=== PATIENT | female | born 1985 | race American Indian/Alaskan Native ===

== ENCOUNTER 2017-12-12 21:11 | Inpatient (IN) | payer OTHER ==
[2017-12-12 21:11] VITALS: BMI 32.5
[2017-12-12 21:16] VITALS: O2SAT 96
--- NOTE | 2017-12-12 21:17 | ED PDOC ---
Psych Transfer Clearance - Clearance Statement Clearance Statement: Dr. Artis alvarezwed vital signs, lab results and transfer papers. Patient clinically stable for psychiatric admission.
[2017-12-12] MEDS ORDERED: DiphenhydrAMINE 50 mg/ml Inj IM PRN (21:52)
[2017-12-12] MEDS ORDERED: Alum-Mag Hydrox-Simethicone Susp (30 mL) PO PRN (21:52)
[2017-12-12] MEDS ORDERED: Magnesium Hydroxide Susp 30 ml UD PO PRN (21:52)
--- NOTE | 2017-12-12 22:09 | PCM.BM ---
Treatment Plan Problems - Problems identified on initial assessmt Self Harm Date Initiated: 12/12/17 Time Initiated: 22:07 Assessment reference: NA Status: Active Suicidal Ideation Date Initiated: 12/12/17 Time Initiated: 22:07 Assessment reference: NA Status: Active Hopelessness/Helplessness Date Initiated: 12/12/17 Time Initiated: 22:08 Assessment reference: NA Status: Active Treatment assets and liabiliti Patient Assests: cooperative, self-reliant, ADL independent, negotiates basic needs Patient Liabilities: substance abuse - Milieu Protocol Maintain good personal hygiene: daily Encourage regular showers, every shift Remind patient to perform daily oral care Conduct patient checks and document Observation sheet: Q15 minutes Maintain personal safety: every shift Educate patient to report safety concerns to staff, every shift Monitor environment for contraband/sharps Medication safety: Monitor for expected outcome, potential side effects: every shift, Assess barriers to learning: every shift, Assess readiness for medication education: every shift
[2017-12-13 09:06] LABS: T4 7.78 ug/dl (5.5-11.0)
[2017-12-13 09:40] VITALS: RESP 20
[2017-12-13] MEDS ORDERED: Risperidone M TAB 2 MG PO STA (14:01)
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
[2017-12-13] MEDS: Risperidone M TAB 2 MG PO SCH (17:59)
--- NOTE | 2017-12-14 05:36 | CON ---
DATE: 12/13/2017 HISTORY OF PRESENT ILLNESS: This is a 32-year-old female who is a smoker with history of gastroesophageal reflux disease, on pantoprazole. The patient was admitted to psychiatry floor, and medical consultation was called for medical followup. The patient denied to have any symptoms of heartburn or shortness of breath. Other review of systems is negative. ALLERGY: NO KNOWN ALLERGY. MEDICATIONS: As per MAR. SOCIAL HISTORY: Positive for smoking. Denies EtOH or substance abuse. FAMILY HISTORY: Not contributory. PHYSICAL EXAMINATION: GENERAL: The patient is in bed comfortable, not in any cardiopulmonary distress. VITAL SIGNS: Blood pressure 142/92, temperature 97.1, respiratory rate 20, and pulse 107. HEENT: Pupils equal and reactive to light. Normal-appearing mucosa of the conjunctivae, oropharynx, and nasal membrane mucosa. NECK: Supple. No JVD. No carotid bruit. No lymph node. No thyromegaly. CHEST AND LUNGS: Bilateral symmetrical expansion. Good air exchange. No rales. No rhonchi. CARDIOVASCULAR SYSTEM: PMI not localized. S1 and S2. No additional sounds. ABDOMEN: Normoactive bowel sounds. No tenderness. No organomegaly. No masses. EXTREMITIES: No cyanosis. No clubbing. No edema. [place]: Alert, awake, and oriented x2. No neurological deficit could be appreciated. ASSESSMENT: Gastroesophageal reflux disease, isolated incident of hypertension of high blood pressure. PLAN: We will monitor her blood pressure and continue current medications and give the patient Protonix if she develop any symptoms. We will follow with you. Thank you for consultation. Kermit Morales MD
[2017-12-14] MEDS: Risperidone M TAB 2 MG PO SCH ×2 (09:11→17:53)
--- NOTE | 2017-12-14 14:19 | PCM.PYCHPN ---
Psychiatric Progress Note - Psychiatric Progress Note Patient seen today, length of contact: pt evaluated discussed with team chart reviewed Patient Chief Complaint: I want to leave Problems Identified/Issues Discussed: pt evaluated . continues to present with disorganized speech and thought process, internally preoccupied , with thought blocking , limited insight into illness, denied command hallucinations , denied suicidal or homicidal ideation Medical Problems: MULTIPLE INPATIENT HOSPITALIZATIONS, INVOLUNTARY FOR SUICIDAL ATTEMPT, PT HAS HX OF NON COMPLIANCE DSM 5 Symptoms Update: schizoaffective disorder PCP abuse Medication Change: No Medical Record Reviewed: Yes Mental Status Examination - Cognitive Function Orientation: Person, Place Attention: Poor Concentration: Poor Association: Loose Fund of Knowledge: Poor Decription of patient's judgement and insights: poor insight and judgment - Mood Mood: Anxious - Affect Affect: Constricted, Depressed - Speech Speech: Slurred, Soft - Formal Thought Process Formal Thought Process: Delusions, Paranoia, Loosening of associations, Flight of ideas - Suicidal Ideation Suicidal Ideation: No - Homicidal Ideation Homicidal Ideation: No Goal/Treatment Plan - Goal/Treatment Plan Need for Continued Stay: Severe depression anxiety, Discharge may exacerbated symptoms, Failed transitioning Progress Toward Problem(s) and Goals/Treatment Plan: PT at current mental status disorganized, delusional, poor insight requesting to be discharged, pt continues to be floridly psychotic and high suicide risk , be referred for screening for involuntary admission for stabilization, accepted by [facility] [place], awaiting a bed risperidone 2mg bid depakote 500mg bid encourage medication compliance, supportive therapy
[2017-12-15 09:20] VITALS: BP 145/90; PULSE 112; TEMP 96.8
[2017-12-15] MEDS: Risperidone M TAB 2 MG PO SCH (10:57)
--- NOTE | 2017-12-15 15:09 | PCM.PYCHPN ---
Psychiatric Progress Note - Psychiatric Progress Note Patient seen today, length of contact: pt evaluated discussed with team chart reviewed Patient Chief Complaint: I know people are talking about me Problems Identified/Issues Discussed: pt evaluated .with treatment team, continues to be floridly psychotic, paranoid, with delusions of persecution, beleiving that staff are plotting against her disorganized speech with loose associations, needs encouragment to comply with medications denied any current command hallucinations, with limited insight into illness Medical Problems: MULTIPLE INPATIENT HOSPITALIZATIONS, INVOLUNTARY FOR SUICIDAL ATTEMPT, PT HAS HX OF NON COMPLIANCE DSM 5 Symptoms Update: schizoaffective disorder PCP use disorder Medication Change: Yes (increase risperidone ) Medical Record Reviewed: Yes Mental Status Examination - Cognitive Function Orientation: Person, Place Attention: Poor Concentration: Poor Association: Loose Fund of Knowledge: Poor Decription of patient's judgement and insights: poor insight and judgment - Mood Mood: Anxious - Affect Affect: Constricted, Depressed - Speech Speech: Slurred, Soft - Formal Thought Process Formal Thought Process: Delusions, Paranoia, Loosening of associations, Flight of ideas - Suicidal Ideation Suicidal Ideation: No - Homicidal Ideation Homicidal Ideation: No Goal/Treatment Plan - Goal/Treatment Plan Need for Continued Stay: Severe depression anxiety, Discharge may exacerbated symptoms, Failed transitioning Progress Toward Problem(s) and Goals/Treatment Plan: PT at current mental status disorganized, delusional, poor insight requesting to be discharged, pt continues to be floridly psychotic and high suicide risk , be referred for screening for involuntary admission for stabilization, [place] [facility] [place] a bed risperidone 3mg bid, cogentin 1mg bid depakote 500mg bid encourage medication compliance, supportive therapy
[2017-12-15] MEDS ORDERED: Divalproex 500 mg DR(BID formulation) PO SCH (17:00)
[2017-12-15] MEDS ORDERED: Risperidone M tab 1 MG PO SCH (22:00)
[2017-12-16] MEDS ORDERED: Risperidone M tab 1 MG PO SCH (09:00)
== END 2017-12-15 21:40 | DRG 430 ==
LOC: H.ER 21:11 → H.PSYCH 21:17
PROVIDERS: ADMIT Psychiatry & Neurology Psychiatry; ATTEND Psychiatry & Neurology Psychiatry
PROC: GZHZZZZ Group Psychotherapy (ICD-10-PCS; principal; 2017-12-12)
PROC: HZ52ZZZ Individual Psychotherapy for Substance Abuse Treatment, Cognitive-Behavioral (ICD-10-PCS; 2017-12-12)
PROC: HZ59ZZZ Individual Psychotherapy for Substance Abuse Treatment, Supportive (ICD-10-PCS; 2017-12-12)
DX: F25.9 Schizoaffective disorder, unspecified (principal); F16.90 Hallucinogen use, unspecified, uncomplicated; F32.2 Major depressive disorder, single episode, severe without psychotic features; F41.9 Anxiety disorder, unspecified; E66.9 Obesity, unspecified; Z68.32 Body mass index [BMI] 32.0-32.9, adult; F17.200 Nicotine dependence, unspecified, uncomplicated; K21.9 Gastro-esophageal reflux disease without esophagitis